=== PATIENT | female | born 1950 | race Caucasian/White ===

== ENCOUNTER 2016-04-28 21:45 | Observation (INO) | payer MEDICARE, BC ==
[2016-04-28] MEDS ORDERED: NITROGLYCERIN 0.4 MG TAB SL PRN (21:55)
[2016-04-28 22:01] LABS: BASOPHILS % (AUTO) 1 % (0-3); EOSINOPHILS % (AUTO) 2 % (0-9); HEMATOCRIT 42 % (35-47); MEAN CORPUSCULAR HGB CONC 33.6 gm/dl (32.0-36.0); MONOCYTES % (AUTO) 6.3 % (0-12); NEUTROPHILS % (AUTO) 65.2 % (37-80)
[2016-04-28 22:03] LABS: MEAN CORPUSCULAR VOLUME 79 fL (81-99)
[2016-04-28] MEDS ORDERED: METOPROLOL TARTRATE 5 MG/5 ML SOL IV ONE ×2 (22:04→22:05)
[2016-04-28] MEDS: SODIUM CHLORIDE 0.9% FLUSH 10 ML SOL IV PRN ×2 (22:04→22:45)
[2016-04-28 22:22] LABS: ALBUMIN 3.6 gm/dl (3.4-5.0); ALT 35 IU/L (14-63); CALCIUM 8.7 mg/dl (8.5-10.1); GLOM FILT RATE 67 mL/min (>60); POTASSIUM 3.7 mMol/L (3.5-5.1); SODIUM 141 mMol/L (136-145)
[2016-04-28] MEDS ORDERED: DILTIAZEM 5 MG/ML SOL IV ONE ×2 (22:38→22:44)
[2016-04-28] MEDS: DILTIAZEM ER 120 MG C24 PO SCH (23:20)
[2016-04-28 23:47] VITALS: O2SAT 96
[2016-04-29 07:39] VITALS: BP 130/79; PULSE 74; RESP 18; TEMP 97.6
[2016-04-29] MEDS ORDERED: ENOXAPARIN 40 MG SOL SC SCH (09:00)
[2016-04-29] MEDS: DILTIAZEM ER 120 MG C24 PO SCH (09:06)
[2016-04-29] MEDS: SODIUM CHLORIDE 0.9% FLUSH 10 ML SOL IV PRN (09:12)
== END 2016-04-29 14:45 | disposition home or self-care (01) | DRG 310 ==
LOC: ED 21:45 → ACUTE CARE 22:59
PROVIDERS: ADMIT Family Medicine; ATTEND Family Medicine
DX: I48.0 Paroxysmal atrial fibrillation (principal); I51.7 Cardiomegaly; Z82.49 Family history of ischemic heart disease and other diseases of the circulatory system
CPT/HCPCS: 36415; 71010; 80053; 82550; 84443; 84484; 85025; 85610; 85730; 93005; 93012; 93306; 96374; 96375; 99218; 99284; 99285; J1650

== ENCOUNTER 2017-02-04 09:42 | Day surgery (SDC) | payer MEDICARE, BC ==
[~2017-02-04 09:42] MED LIST: LIDOCAINE HCL 1% MPF SOL ONE; PROPOFOL 500 MG/50 ML EMU IV ONE
[2017-02-04 11:48] VITALS: BP 131/78; PULSE 62; RESP 18; TEMP 97.4; O2SAT 58
== END 2017-02-04 12:20 | disposition home or self-care (01) | DRG 379 ==
LOC: SURG 09:42
PROVIDERS: ATTEND Surgery
DX: K62.5 Hemorrhage of anus and rectum (principal); K52.9 Noninfective gastroenteritis and colitis, unspecified; Z80.0 Family history of malignant neoplasm of digestive organs; K63.5 Polyp of colon
CPT/HCPCS: J2001; J2704